=== PATIENT | female | born 1990 | race African-American/Black ===

== ENCOUNTER 2017-03-07 15:40 | Emergency (ER) | payer OTHER ==
[2017-03-07 15:47] VITALS: TEMP 98.7; BMI 29.9
[2017-03-07] MEDS ORDERED: ACETAMINOPHEN 500 MG TABLET (FP) PO ONE (16:28)
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
[2017-03-07] MEDS ORDERED: ACETAMINOPHEN 325 MG TABLET (FP) ONE (16:39)
[2017-03-07] MEDS ORDERED: KETOROLAC TROMETHAMINE 30 MG/1 ML VIAL IM ONE (17:03)
[2017-03-07] MEDS ORDERED: KETOROLAC TROMETHAMINE 30 MG/1 ML VIAL ONE (17:46)
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
[2017-03-07 19:19] VITALS: BP 124/72; PULSE 78
== END 2017-03-07 17:10 | disposition home or self-care (01) ==
LOC: JER 15:40
PROC: 3E0233Z Introduction of Anti-inflammatory into Muscle, Percutaneous Approach (ICD-10-PCS; principal; 2017-03-07)
DX: M54.5 Low back pain (principal); M25.552 Pain in left hip; M25.512 Pain in left shoulder; R10.2 Pelvic and perineal pain; V03.10XA Pedestrian on foot injured in collision with car, pick-up truck or van in traffic accident, initial encounter; Y92.414 Local residential or business street as the place of occurrence of the external cause; Y93.89 Activity, other specified; Y99.8 Other external cause status
CPT/HCPCS: 72100-TC; 72170-TC; 73030-TC-LT; 73060-TC-LT; 73552-TC-LT; 84703; 99282-25